=== PATIENT | female | born 1955 | race Caucasian/White ===

== ENCOUNTER 2017-10-03 08:42 | Outpatient (CLI) | payer BC | END 2017-10-03 08:43 | disposition home or self-care (01) | LOC: BICBD 08:42 | PROVIDERS: ATTEND Internal Medicine Rheumatology | DX: Z12.31 Encounter for screening mammogram for malignant neoplasm of breast (principal); Z13.820 Encounter for screening for osteoporosis; R92.1 Mammographic calcification found on diagnostic imaging of breast | CPT/HCPCS: 77063; 77067; 77080 ==

== ENCOUNTER 2018-09-27 14:24 | Outpatient (CLI) | payer BC ==
--- NOTE | 2018-09-27 16:38 | ULT ---
RENAL SONOGRAM: 09/27/2018 HISTORY: Acute renal insufficiency. FINDINGS: The kidneys demonstrate a normal sonographic appearance bilaterally without evidence of a renal mass, renal calculus, or hydronephrosis. The right kidney measures 10.4 cm x 5.8 cm with the left kidney measuring 9.8 cm x 4.8 cm. The urinary bladder demonstrates a normal sonographic appearance. The urinary bladder volume is 263. 39 mL. IMPRESSION: Normal appearing bilateral kidneys without evidence of hydronephrosis. POS: DONTA
== END 2018-09-27 14:25 | disposition home or self-care (01) ==
LOC: BICULT 14:24
PROVIDERS: ATTEND Family Medicine
DX: N17.9 Acute kidney failure, unspecified (principal)
CPT/HCPCS: 76770

== ENCOUNTER 2018-10-04 12:30 | Outpatient (CLI) | payer BC | END 2018-10-04 12:31 | disposition home or self-care (01) | LOC: BICMAMMO 12:30 | PROVIDERS: ATTEND Family Medicine | DX: Z12.31 Encounter for screening mammogram for malignant neoplasm of breast (principal) | CPT/HCPCS: 77063; 77067 ==

== ENCOUNTER 2018-10-10 07:32 | Outpatient (CLI) | payer BC ==
--- NOTE | 2018-10-10 09:37 | ULT ---
RENAL ULTRASOUND WITH DOPPLER EVALUATION: COMPARISON: Prior renal ultrasound dated 09/27/2018. TECHNIQUE: Spectral Doppler images were obtained of the renovascular as well as the abdominal aorta per renal du plex protocol. FINDINGS: No hydronephrosis is demonstrated. The peak systolic velocity within the right renal artery was 54.9 cm/s and in the left renal artery 7 3.1 cm/s. The peak systolic velocity measured within the aorta was 116 cm/s. The right renal artery to aortic ratio is 0.47. The left renal artery aorta ratio is 0.63. The sampled resistive index within the arcuate artery in the right was 0.65 and in the left 0.61. IMPRESSION: No spectral Doppler findings to suggest the presence of underlying renal artery stenosis. POS: DONTA
== END 2018-10-10 07:33 | disposition home or self-care (01) ==
LOC: BICULT 07:32
PROVIDERS: ATTEND Family Medicine
DX: N17.9 Acute kidney failure, unspecified (principal)
CPT/HCPCS: 76700

== ENCOUNTER 2019-07-02 07:45 | Outpatient (CLI) | payer BC ==
--- NOTE | 2019-07-02 08:33 | ULT ---
EXAM: Abdominal ultrasound complete: HISTORY: Transaminitis, elevated LFTs COMPARISON: None FINDINGS: The liver appears unremarkable. Status post cholecystectomy. The common bile duct is 0.6 cm. Visualized pancreas: Unremarkable. Visualized abdominal aorta: Unremarkable. Visualized IVC: Unremarkable. Visualized spleen: Unremarkable. Visualized kidneys: No evidence for hydronephrosis or solid or cystic mass. No mass, abscess, adenopathy, or abnormal fluid collection or other acute process. IMPRESSION: Status post cholecystectomy. Otherwise unremarkable abdomen.
== END 2019-07-02 07:46 | disposition home or self-care (01) ==
LOC: BICULT 07:45
PROVIDERS: ATTEND Family Medicine
DX: R74.0 Nonspecific elevation of levels of transaminase and lactic acid dehydrogenase [LDH] (principal); Z90.49 Acquired absence of other specified parts of digestive tract
CPT/HCPCS: 76700

== ENCOUNTER 2020-01-14 09:06 | Outpatient (CLI) | payer BC ==
--- NOTE | 2020-01-14 09:29 | ULT ---
Bilateral renal ultrasound CLINICAL INDICATION: Urinary tract infection COMPARISON: 09/19/2018 FINDINGS: Right kidney: There is no evidence of a renal mass, renal calculus, or hydronephrosis seen. The right kidney measures 9 cm x 4.2 cm. Left kidney: There is no evidence of a renal mass, renal calculus, or hydronephrosis. The left kidney measures 9 cm x 5.5 cm. Urinary bladder: Incompletely distended but otherwise grossly within normal limits. Urinary bladder v olume is 55.4 mL. IMPRESSION: No evidence of hydronephrosis or renal cortical thinning.
== END 2020-01-14 09:07 | disposition home or self-care (01) ==
LOC: SCSULT 09:06
PROVIDERS: ATTEND Family Medicine
DX: N39.0 Urinary tract infection, site not specified (principal)
CPT/HCPCS: 76770

== ENCOUNTER 2020-02-20 14:52 | Outpatient (CLI) | payer BC ==
[~2020-02-20 14:52] MED LIST: Iopamidol 370 76% 100 ML VIAL ONE
--- NOTE | 2020-02-20 18:38 | CT ---
CT ABDOMEN AND PELVIS WITH AND WITHOUT CONTRAST: 02/20/20 Axial tomograms obtained pre and post IV contrast. Postcontrast images obtained in a portal venous an d delayed venous phase. INDICATIONS: Interstitial cystitis. Microscopic hematuria. FINDINGS: Lung bases clear. Review of the noncontrast images shows no evidence of urinary tract calculus. Urinary bladder is unre markable. Review of the postcontrast images show symmetric enhancement of both kidneys. A small low density cys tic lesion of the left renal cortex measures approximately 0.8 cm. This is most likely a small cyst. There is no other renal lesion identified. No enhancing mass. On delayed sequence, contrast secretion into the collecting structures. The collecting structures germain ear unremarkable. The urinary bladder is distended on both postcontrast sequences, more so on the delayed sequence. The bladder is partially filled with contrast on the delayed sequence. The urinary bladder wall appears normal with no evidence of abnormal thickening. Images through the pelvis show evidence of hysterecto my. The liver, spleen and pancreas unremarkable. Adrenal glands appear normal. Bowel loops unremarkable. Aorta normal caliber. No adenopathy seen. Osseous structures unremarkable. There are degenerative changes seen in the lumbar spine with loss of disc space at L2-3, L3-4, and L5 -S1 levels. IMPRESSION: Unremarkable urinary tract. Small cyst in the left renal cortex. No evidence of acute process. POS: AGW
== END 2020-02-20 14:53 | disposition home or self-care (01) ==
LOC: BICCT 14:52
PROVIDERS: ATTEND Urology
DX: N30.10 Interstitial cystitis (chronic) without hematuria (principal); N28.1 Cyst of kidney, acquired
CPT/HCPCS: 74178; Q9967

== ENCOUNTER 2020-02-24 09:40 | Outpatient (CLI) | payer BC ==
--- NOTE | 2020-02-24 10:12 | MMO ---
Bilateral MAMMO Bilat Screen [facility]. CLINICAL HISTORY: Patient is 64 years old and is seen for screening. The patient has no family history of breast cancer. The patient has no personal history of cancer. VIEWS: The views performed were: bilateral craniocaudal with tomosynthesis and bilateral mediolateral oblique with tomosynthesis. FILMS COMPARED: The present examination has been compared to prior imaging studies performed at [facility] on 09/15/2015, 09/15/2016, 10/03/2017 and 10/04/2018. This study has been interpreted with the assistance of computer-aided detection. MAMMOGRAM FINDINGS: There are scattered fibroglandular densities. There are calcifications with grouped or clustered distribution seen in the upper-outer region of the right breast. The calcifications have increased in number. In the left breast, there are no suspicious masses, calcifications or areas of architectural distortion. IMPRESSION: CALCIFICATIONS IN THE RIGHT BREAST REQUIRE ADDITIONAL EVALUATION. MAGNIFICATION VIEWS ARE RECOMMENDED. THE RESULTS OF THIS EXAM WERE SENT TO THE PATIENT. ACR BI-RADS Category 0 - Incomplete: Need additional imaging evaluation. [facility] will notify the patient of the need for additional imaging services. MAMMOGRAPHY NOTE: 1. A negative mammogram report should not delay a biopsy if a dominant of clinically suspicious mass is present. 2. Approximately 10% to 15% of breast cancers are not detected by mammography. 3. Adenosis and dense breasts may obscure an underlying neoplasm. Reported by: DARRION MCCLENDON MD Electonically Signed: [id number]
--- NOTE | 2020-02-24 15:16 | MMO ---
Right Breast MAMMO Unilat Diag [facility]DI RT+SHEEBA. CLINICAL HISTORY: Patient is 64 years old and is seen for diagnostic exam. The patient has no family history of breast cancer. The patient has no personal history of cancer. VIEWS: The views performed were: right craniocaudal spot compression magnification; right mediolateral oblique spot compression magnification; right mediolateral spot compression magnification; and right mediolateral with tomosynthesis. FILMS COMPARED: The present examination has been compared to prior imaging studies performed at [facility] on 09/15/2016, 10/03/2017, 10/04/2018 and 02/24/2020. This study has been interpreted with the assistance of computer-aided detection. MAMMOGRAM FINDINGS: There are scattered fibroglandular densities. There are calcifications seen in the right breast. The calcifications have increased in number. IMPRESSION: CALCIFICATIONS IN THE RIGHT BREAST ARE SUSPICIOUS. A STEREOTACTIC BREAST BIOPSY IS RECOMMENDED. FINDINGS DISCUSSED WITH PATIENT AND DR. JUAN MATA'S NURSE. THE RESULTS OF THIS EXAM WERE SENT TO THE PATIENT. ACR BI-RADS Category 4 - Suspicious abnormality - biopsy should be considered MAMMOGRAPHY NOTE: 1. A negative mammogram report should not delay a biopsy if a dominant of clinically suspicious mass is present. 2. Approximately 10% to 15% of breast cancers are not detected by mammography. 3. Adenosis and dense breasts may obscure an underlying neoplasm. Reported by: MIKAYLA MARTINEZ MD Electonically Signed: [id number]
== END 2020-02-24 09:41 | disposition home or self-care (01) ==
LOC: BICMAMMO 09:40
PROVIDERS: ATTEND Radiology Diagnostic Radiology
DX: Z12.31 Encounter for screening mammogram for malignant neoplasm of breast (principal); R92.1 Mammographic calcification found on diagnostic imaging of breast
CPT/HCPCS: 77063; 77067; G0279

== ENCOUNTER → 2020-03-15 | Day surgery (SDC) | payer BC ==
--- NOTE | 2020-03-15 09:31 | MMO ---
RIGHT BREAST STEREOTACTIC BIOPSY: HISTORY: Right breast calcifications. COMPARISON: 02/24/2020. FINDINGS: Successful right breast stereotactic biopsy. Calcifications are present in the specimen radiograph. Post biopsy clip was placed. Post biopsy mammogram demonstrates appropriate postsurgical change. Biopsy clip is slightly lateral and inferior to the biopsy site and remaining calcifications. TECHNIQUE: Consent was obtained to perform a right breast stereotactic biopsy. The patient was placed in a pron e position on the stereotactic table. Calcifications were identified. The breast was prepped and dr aped in a sterile fashion. 1% Lidocaine, buffered with sodium bicarbonate, was used for local anesth esia. Stereotactic biopsy needle position was confirmed pre- and post-firing. Stereotactic biopsy w as performed and a total of six 10-gauge samples were obtained. Specimen radiograph was performed. SPECIMEN RADIOGRAPH: Calcifications are present. Hemostasis was achieved with manual pressure. A post-biopsy mammogram was performed. Post-biopsy mammogram demonstrates residual calcifications and postop-biopsy changes, expected. Biop sy clip is slightly inferior and lateral to the biopsy site. IMPRESSION: Successful right breast stereotactic biopsy. Final pathologic diagnosis is pending. POS: OFF
== END ==
LOC: MAMMO 07:04
PROVIDERS: ATTEND Family Medicine
PROC: 0H9T3ZX Drainage of Right Breast, Percutaneous Approach, Diagnostic (ICD-10-PCS; principal; 2020-03-15)
DX: N60.11 Diffuse cystic mastopathy of right breast (principal); R92.0 Mammographic microcalcification found on diagnostic imaging of breast; Z88.0 Allergy status to penicillin; Z88.1 Allergy status to other antibiotic agents; Z88.8 Allergy status to other drugs, medicaments and biological substances
CPT/HCPCS: 19081; 76098; 88305

== ENCOUNTER 2020-08-16 10:14 | Outpatient (CLI) | payer BC ==
--- NOTE | 2020-08-16 11:02 | BD ---
DEXA BONE MINERAL DENSITY STUDY: HISTORY: Osteoporosis screening. COMPARISON: None. FINDINGS: Lumbar Spine: BMD (g/cm2) L1 0.903 T-Score: -0.8 0.7 L2 1.139 T-Score: 1.0 2.6 L3 1.199 T-Score: 1.0 2.7 L4 1.129 T-Score: 0.6 2.4 L1-L4 1.098 T-Score: 0.5 2.1 Femoral Neck: 0.651 T-Score: -1.8 -0.4 Total Femur: 0.794 T-Score: -1.2 -0.1 Ten-year fracture risk: Major osteoporotic fracture: 8.6%. Hip fracture: 1%. Impression: Osteopenia with fracture risk as above. POS: DONTA
== END 2020-08-16 10:15 | disposition home or self-care (01) ==
LOC: BICMAMMO 10:14
PROVIDERS: ATTEND Specialist
DX: Z13.820 Encounter for screening for osteoporosis (principal); M85.859 Other specified disorders of bone density and structure, unspecified thigh
CPT/HCPCS: 77063; 77067; 77080

== ENCOUNTER 2022-08-21 11:08 | Outpatient (CLI) | payer MEDICARE, OTHER | END 2022-08-21 11:09 | disposition home or self-care (01) | LOC: BICRAD 11:08 | PROVIDERS: ATTEND Family Medicine | DX: M79.671 Pain in right foot (principal) ==

== ENCOUNTER 2023-09-13 09:40 | Outpatient (CLI) | payer MEDICARE, OTHER | END 2023-09-13 09:41 | disposition home or self-care (01) | LOC: BICCT 09:40 | PROVIDERS: ATTEND Physician Assistant Medical | DX: K21.9 Gastro-esophageal reflux disease without esophagitis (principal); I25.10 Atherosclerotic heart disease of native coronary artery without angina pectoris; K52.9 Noninfective gastroenteritis and colitis, unspecified; R49.0 Dysphonia; R10.84 Generalized abdominal pain; R11.0 Nausea; R13.19 Other dysphagia; M47.816 Spondylosis without myelopathy or radiculopathy, lumbar region; Z80.0 Family history of malignant neoplasm of digestive organs; Z90.49 Acquired absence of other specified parts of digestive tract; Z90.710 Acquired absence of both cervix and uterus | CPT/HCPCS: 74177; 82565 ==

== ENCOUNTER 2023-11-02 09:35 | Outpatient (CLI) | payer MEDICARE, OTHER | END 2023-11-02 09:36 | disposition home or self-care (01) | LOC: SCSMRI 09:35 | PROVIDERS: ATTEND Physician Assistant Medical | DX: K52.9 Noninfective gastroenteritis and colitis, unspecified (principal); R10.11 Right upper quadrant pain | CPT/HCPCS: 74183 ==

== ENCOUNTER 2024-06-27 07:32 | Outpatient (CLI) | payer MEDICARE, OTHER | END 2024-06-27 07:33 | disposition home or self-care (01) | LOC: NM 07:32 | PROVIDERS: ATTEND Physician Assistant Medical | DX: K21.9 Gastro-esophageal reflux disease without esophagitis (principal); R68.81 Early satiety; R14.0 Abdominal distension (gaseous); E11.65 Type 2 diabetes mellitus with hyperglycemia | CPT/HCPCS: 78264; A9541 ==

== ENCOUNTER 2024-11-27 12:28 | Outpatient (CLI) | payer MEDICARE, OTHER | END 2024-11-27 12:29 | disposition home or self-care (01) | LOC: BICCT 12:28 | PROVIDERS: ATTEND Family Medicine | DX: R79.89 Other specified abnormal findings of blood chemistry (principal) | CPT/HCPCS: 74170 ==

== ENCOUNTER 2025-08-19 14:45 | Outpatient (CLI) | payer MEDICARE, OTHER | END 2025-08-19 14:46 | disposition home or self-care (01) | LOC: BICRAD 14:45 | PROVIDERS: ATTEND Family Medicine | DX: M54.2 Cervicalgia (principal); M54.6 Pain in thoracic spine; M54.50 Low back pain, unspecified; M47.816 Spondylosis without myelopathy or radiculopathy, lumbar region; M47.817 Spondylosis without myelopathy or radiculopathy, lumbosacral region; M47.814 Spondylosis without myelopathy or radiculopathy, thoracic region; M47.812 Spondylosis without myelopathy or radiculopathy, cervical region | CPT/HCPCS: 72052; 72072; 72100 ==